=== PATIENT | male | born 1980 | race Caucasian/White ===

== ENCOUNTER 2016-11-17 23:05 | Emergency (ER) | payer SELFPAY ==
[~2016-11-17] VITALS: Ht 162.6 cm; Wt 71.7 kg
[~2016-11-17 23:05] MED LIST: ACETAMINOPHEN-1 EAC1 ORAL; CYCLOBENZAPRINE10 MG ORAL; IBUPROFEN600 MG ORAL; NKM
[2016-11-17] MEDS ORDERED: Famotidine 20 MG/ 2ML VIAL IVP ONE (23:30)
[2016-11-17] MEDS ORDERED: EPINEPHrine 1mg/1ml Amp IM ONE (23:30)
[2016-11-17] MEDS ORDERED: DiphenhydrAMINE 50mg/ml Inj IVP ONE (23:30)
[2016-11-17] MEDS ORDERED: Dexamethasone 4mg/ml vial IM ONE (23:30)
[2016-11-17 23:50] VITALS: BP 134/88
[2016-11-18 00:16] VITALS: BP 137/88
[2016-11-18 00:43] LABS: APPEARANCE,URINE CLEAR; KETONES,URINE NEGATIVE (NEGATIVE); LEUKOCYTE ESTERASE ,URINE NEGATIVE (NEGATIVE); NITRITE,URINE NEGATIVE (NEGATIVE); PH,URINE 6 (4.5-8.0); PROTEIN,URINE NEGATIVE (NEGATIVE); UROBILINOGEN,URINE NORMAL MG/DL (0.0-1.0)
[2016-11-18 00:47] LABS: BASOPHILS % (AUTO) 0.2 % (0.0-2.0); EOSINOPHILS % (AUTO) 0.1 % (0.0-3.0); MEAN CORPUSCULAR VOLUME 88 FL (80-99); MEAN PLATELET VOLUME 6.6 FL (6.5-10.1); MONOCYTES % (AUTO) 6.2 % (1.0-10.0); NEUTROPHILS % (AUTO) 79.5 % (45.0-75.0); PLATELET COUNT 243 K/UL (150-450); RED BLOOD COUNT 5.61 M/UL (4.70-6.10); RED CELL DISTRIBUTION WIDTH 11.1 % (11.6-14.8); WHITE BLOOD COUNT 7.2 K/UL (4.8-10.8)
[2016-11-18 00:50] LABS: ALANINE AMINOTRANSFERASE 21 U/L (3-41); ALBUMIN/GLOBULIN RATIO 1.7 (1.0-2.7); ANION GAP 16 (5-15); ASPARTATE AMINO TRANSFERASE 24 U/L (5-40); CARBON DIOXIDE 26 mEQ/L (20-30); CHLORIDE 95 mEQ/L (98-107); CREATININE 1.3 mg/dL (0.7-1.2); GLOMERULAR FILTRATION RATE > 60 mL/min (>60); HEMOLYSIS 13; SODIUM 137 mEQ/L (135-145); TOTAL PROTEIN 7.7 g/dL (6.6-8.7)
[2016-11-18 01:33] VITALS: BP 141/82
--- NOTE | 2016-11-18 01:56 | Emergency Room Report ---
History of Present Illness General Chief Complaint: Skin Rash/Abscess Source: Patient Present Illness HPI Patient presents with itching in his skin. All over his body. Began 4 days ago and discontinued it worse. His mom gave him a dose of 20 mg of prednisone daily since the day after began. He thinks it might have started after bug bite but is not sure. Denies any new foods closes soaps fragrances. No NVD, throat pain or swelling, no wheezing, chest pain, dyspnea. Never with allergic reaction or skin reactions before. Allergies: Coded Allergies: No Known Allergies (Unverified , 11/01/14) Patient History Past Medical History: see triage record Social History Narrative with Mom Reviewed Nursing Documentation: PMH: Agreed, PSxH: Agreed Nursing Documentation-PMH Past Medical History: No Stated History Review of Systems All Other Systems: negative except mentioned in HPI Physical Exam Vital Signs Date Time Temp Pulse Resp B/P Pulse Ox O2 Delivery O2 Flow Rate FiO2 11/17/16 23:11 98.2 64 18 134/88 97 Room Air Sp02 EP Interpretation: reviewed, normal General Appearance: well appearing, no apparent distress, GCS 15 Head: normocephalic Eyes: bilateral eye PERRL, bilateral eye normal inspection ENT: normal pharynx, no angioedema, normal voice, moist mucus membranes Neck: supple Respiratory: lungs clear, normal breath sounds Cardiovascular #1: regular rate, rhythm Cardiovascular #2: 2+ radial (R) Gastrointestinal: normal inspection, normal bowel sounds, non tender, no mass, non-distended Musculoskeletal: back normal, gait/station normal, normal range of motion Neurologic: alert, oriented x3, grossly normal Psychiatric: anxious Skin: warm/dry, other - urticaria, excoriation, trunk more than extrem Medical Decision Making Diagnostic Impression: Primary Impression: Urticaria ER Course Patient with itching skin rash. Ddx: urticaria, allergic reaction, viral syndrome amongst others. No new soaps/foods. Uncomfortable. Will treat with epi, solumedrol, benadryl and pepcid. Improved with treatment. Erythema improved and decreased itching. Discussed considerations for eval for etiology. Patient stable for outpatient observation and treatment. Last Vital Signs Date Time Temp Pulse Resp B/P Pulse Ox O2 Delivery O2 Flow Rate FiO2 11/18/16 02:20 98.2 92 18 128/80 97 Room Air Status: improved Disposition: HOME, SELF-CARE Condition: Improved Scripts Famotidine (PEPCID) 20 Mg Tablet 20 MG ORAL DAILY, #7 TAB 0 Refills Prov: Delbert Pepper M.D. 11/18/16 Diphenhydramine Hcl* (BENADRYL*) 25 Mg Capsule 25 MG ORAL Q6H Y for Itching, #16 CAP Prov: Delbert Pepper M.D. 11/18/16 Prednisone* (PREDNISONE*) 20 Mg Tablet 40 MG ORAL DAILY, #5 TAB Prov: Delbert Pepper M.D. 11/18/16 Referrals: NOT CHOSEN EDDIE/,REFERRING (PCP) Delbert Pepper M.D. Nov 18, 2016 01:56
[2016-11-18] MEDS ORDERED: PEPCID20 MG ORAL (02:00)
[2016-11-18] MEDS ORDERED: PREDNISONE20 MG ORAL (02:00)
[2016-11-18] MEDS ORDERED: BENADRYL25 MG ORAL (02:00)
[2016-11-18 02:20] VITALS: BP 128/80
== END 2016-11-18 02:20 | disposition home or self-care (01) ==
LOC: EMR 23:45
DX: L50.9 Urticaria, unspecified (principal)
CPT/HCPCS: 36415; 80053; 80300; 81003; 85025; 96372; 96374; 96375; 99284; J0171; J1100; J1200; S0028